=== PATIENT | male | born 2000 | race Two or more races ===

== ENCOUNTER 2021-08-21 08:44 | Emergency (ER) | payer MEDICAID, OTHER ==
[~2021-08-21] VITALS: Ht 185.4 cm; Wt 65.8 kg
[2021-08-21 09:38] VITALS: BP 133/86
[2021-08-21 10:10] LABS: Alcohol, Urine < 3.0 mg/dL (0-10); Amphetamine Screen, Urine NEGATIVE (NEGATIVE); Barbiturate Scree,Urine NEGATIVE (NEGATIVE); Benzodiazephine Screen, Urine NEGATIVE (NEGATIVE); Cannabinoid Screen, Urine POSITIVE (NEGATIVE); Cocaine Screen, Urine NEGATIVE (NEGATIVE); Opiate Scree,Urine NEGATIVE (NEGATIVE); Phencyclidine Screen, Urine NEGATIVE (NEGATIVE)
[2021-08-21] MEDS ORDERED: LORazepam 0.5 MG TAB PO ONE (10:15)
== END 2021-08-21 10:57 | disposition home or self-care (01) ==
LOC: EDBD 08:44 → ER 08:44
DX: F41.9 Anxiety disorder, unspecified (principal); F12.10 Cannabis abuse, uncomplicated
CPT/HCPCS: 80307; 93005